=== PATIENT | male | born 1985 | race Caucasian/White ===

== ENCOUNTER 2019-01-07 08:34 | Emergency (ER) | payer BC ==
[2019-01-07 09:03] LABS: Basophils % (Auto) 0.5 % (0.0-1.8); Eosinophils # (Auto) 0.5 K/mm3 (0.0-0.4); Eosinophils % (Auto) 7.7 % (0.0-4.3); Hematocrit 45.9 % (35.5-45.6); Hemoglobin 15.3 gm/dl (11.8-15.2); Lymphocytes % (Auto) 14.8 % (13.4-35.0); Mean Corpuscular HGB Conc 33 % (32-34); Mean Corpuscular Volume 81 fl (84-94); Monocytes # (Auto) 0.5 K/mm3 (0.0-0.8); Platelet Count 185 K/mm3 (140-440); Red Blood Count 5.66 M/mm3 (3.65-5.03); Red Cell Distribution Width 13.7 % (13.2-15.2)
[2019-01-07 09:22] LABS: BUN/Creatinine Ratio 15; Blood Urea Nitrogen 17 mg/dL (9-20); Calcium 9.7 mg/dL (8.4-10.2); Hemolysis Index 6
--- NOTE | 2019-01-07 09:39 | Emergency Department Report ---
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 He states he has initially had a 2 hour episode that felt as if his sugar was low. He drank orange juice rested and symptoms improved. He didn't have recurrent feeling of fever, sweats, or feeling warm. His home temperature was less than 100.4. Last week patient had some ear, sore throat, sinus symptoms, and possible submandibular gland swelling. He started Augmentin 4 days ago and requested on the symptoms are improving since initi ating medication. He denies headache, chest pain, shortness of breath, abdominal pain, nausea, vomiting, diarrhea, cough, rash, or cellulitis. ED Review of Systems ROS: Stated complaint: FEVER/POSS ABSCESS Other details as noted in HPI Comment: All other systems reviewed and negative ED Past Medical Hx - Past Medical History Previous Medical History?: No - Surgical History Past Surgical History?: No - Social History Smoking Status: Never Smoker Substance Use Type: None ED Physical Exam - General Limitations: No Limitations - Other Other exam information: General: no acute distress Head: Atraumatic, normocephalic Eyes: Normal appearance, pupils equal and reactive to light, extraocular movements intact ENT: normal oropharynx without exudate, no lymphadenopathy Neck: Normal appearance, no stridor, no meningismus, no midline tenderness. Cardiovascular: Regular rate and rhythm Chest: Clear to auscultation, no wheezes, rales, or crackles Abdomen: nondistended, soft, nontender, no rebound or guarding Extremity: Normal appearance, no deformity, full range of motion Neuro: Alert and oriented 3, clear speech, no gross motor or sensory deficit Skin: No warmth, erythema ED Course Vital Signs 01/07/19 01/07/19 08:43 08:57 Temperature 98.5 F Pulse Rate 71 Respiratory 18 16 Rate Blood Pressure 140/83 [Left] O2 Sat by Pulse 100 100 Oximetry ED Medical Decision Making - Lab Data Result diagrams: 01/07/19 08:52 01/07/19 08:52 Lab Results 08/13/19 08/13/19 Range/Units 08:52 08:52 WBC 6.6 (4.5-11.0) K/mm3 RBC 5.66 H (3.65-5.03) M/mm3 Hgb 15.3 H (11.8-15.2) gm/dl Hct 45.9 H (35.5-45.6) % MCV 81 L (84-94) fl MCH 27 L (28-32) pg MCHC 33 (32-34) % RDW 13.7 (13.2-15.2) % Plt Count 185 (140-440) K/mm3 Lymph % (Auto) 14.8 (13.4-35.0) % Harris % (Auto) 8.0 H (0.0-7.3) % Eos % (Auto) 7.7 H (0.0-4.3) % Baso % (Auto) 0.5 (0.0-1.8) % Lymph # 1.0 L (1.2-5.4) K/mm3 Harris # 0.5 (0.0-0.8) K/mm3 Eos # 0.5 H (0.0-0.4) K/mm3 Baso # 0.0 (0.0-0.1) K/mm3 Seg Neutrophils % 69.0 (40.0-70.0) % Seg Neutrophils # 4.5 (1.8-7.7) K/mm3 Sodium 141 (137-145) mmol/L Potassium 4.4 (3.6-5.0) mmol/L Chloride 99.9 (98-107) mmol/L Carbon Dioxide 29 (22-30) mmol/L Anion Gap 17 mmol/L BUN 17 (9-20) mg/dL Creatinine 1.1 (0.8-1.5) mg/dL Estimated GFR > 60 ml/min BUN/Creatinine Ratio 15 % Glucose 98 (75-100) mg/dL Calcium 9.7 (8.4-10.2) mg/dL - Medical Decision Making Patient does not have signs or symptoms of sepsis and septic shock. Patient's symptoms appear to be infectious in etiology and above the neck and could be due to a viral illness. Patient does have improvement with Augmentin and has been instructed to continue medication and continue to monitor temperature and symptoms. Follow-up advised. - Differential Diagnosis viral syndrome, fever, sinusitis, sepsis Critical Care Time: No Critical care attestation.: If time is entered above; I have spent that time in minutes in the direct care of this critically ill patient, excluding procedure time. ED Disposition Clinical Impression: Febrile illness Disposition: DC- TO HOME OR SELFCARE Is pt being admited?: No Does the pt Need Aspirin: No Condition: Stable Instructions: Viral Syndrome (ED), Fever in Adults (ED) Additional Instructions: Continue your current antibiotics. Continue to monitor your signs and symptoms. Return if symptoms worsen as indicated by your discharge instructions. Follow-up with your primary care doctor for further evaluation. Referrals: JEANNETTE HARRINGTON MD [Staff Physician] - 3-5 Days Time of Disposition: 09:41
[2019-01-07 09:55] VITALS: BP 129/82
== END 2019-01-07 09:55 | disposition home or self-care (01) ==
LOC: ED 08:34
DX: R50.9 Fever, unspecified (principal)
CPT/HCPCS: 36415; 80048; 85025

== ENCOUNTER 2021-08-19 08:12 | Outpatient (CLI) | payer BC ==
[2021-08-19 08:38] LABS: Basophils % (Auto) 0.8 % (0.0-1.8); Eosinophils # (Auto) 0.3 K/mm3 (0.0-0.4); Eosinophils % (Auto) 5.6 % (0.0-4.3); Hematocrit 49.4 % (35.5-45.6); Hemoglobin 16.5 gm/dl (11.8-15.2); Lymphocytes # (Auto) 1.9 K/mm3 (1.2-5.4); Lymphocytes % (Auto) 36.2 % (13.4-35.0); Mean Corpuscular HGB Conc 33 % (32-34); Mean Corpuscular Volume 81 fl (84-94); Monocytes # (Auto) 0.5 K/mm3 (0.0-0.8); Monocytes % (Auto) 8.8 % (0.0-7.3); Platelet Count 199 K/mm3 (140-440); Red Blood Count 6.13 M/mm3 (3.65-5.03); Red Cell Distribution Width 13.6 % (13.2-15.2)
[2021-08-19 09:03] LABS: Alanine Aminotransferase 34 units/L (7-56); Albumin 5.3 g/dL (3.9-5); BUN/Creatinine Ratio 26; Blood Urea Nitrogen 26 mg/dL (9-20); Calcium 10.1 mg/dL (8.4-10.2); Chol/HDL Ratio 4.71 %; HDL Cholesterol 46 mg/dL (40-59); Hemolysis Index 12; LDL Cholesterol,Direct 157 mg/dL (50-130)
== END 2021-08-19 08:13 | disposition home or self-care (01) ==
LOC: LAB 08:12
DX: Z12.5 Encounter for screening for malignant neoplasm of prostate (principal); Z00.00 Encounter for general adult medical examination without abnormal findings; Z13.1 Encounter for screening for diabetes mellitus; Z13.220 Encounter for screening for lipoid disorders; Z13.29 Encounter for screening for other suspected endocrine disorder; E78.5 Hyperlipidemia, unspecified; E29.1 Testicular hypofunction
CPT/HCPCS: 36415; 80053; 80061; 82306; 82670; 83036; 84153; 84403; 84443; 85025